=== PATIENT | female | born 1985 | race Caucasian/White ===

== ENCOUNTER 2021-02-05 21:18 | Emergency (ER) | payer OTHER ==
[2021-02-05] MEDS ORDERED: Acetaminophen/HYDROcodone 325-5 MG Tab PO ONE (22:35)
--- NOTE | 2021-02-05 22:44 | EDM.PDOC ---
ED HPI GENERAL MEDICAL PROBLEM - General Chief Complaint: Lower Extremity Injury/Pain Stated Complaint: ANKLE INJURY Time Seen by Provider: 02/05/21 22:30 Source of Information: Reports: Patient, Family (Sister), RN History Limitations: Reports: No Limitations - History of Present Illness INITIAL COMMENTS - FREE TEXT/NARRATIVE: chief complaint: left ankle injury This is a 35 year old female presents to the ER with her Sister, They are on vacation with family, Nay was trying to reach for a toy that was stuck up by the ceiling and fell off the couch. This happened at 3 pm and has not been able to walk on the foot. The ankle is swollen and painful. Tried to walk on foot and almost threw up from the pain. denies any other injury Onset: Today Onset Date: 02/05/21 Onset Time: 15:00 Duration: Hour(s):, Constant Location: Reports: Lower Extremity, Left Quality: Reports: Ache, Burning, Sharp Severity: Moderate Improves with: Reports: Immobilization Worsens with: Reports: Movement Context: Reports: Other (fall in home) Associated Symptoms: Reports: No Other Symptoms Treatments [employer]ENT[employer]ICE ATTENDANT: Reports: Cold Therapy Left Ankle Pain Score (Numeric/FACES): 7 - Related Data Allergies Allergy/AdvReac Type Severity Reaction Status Date / Time No Known Allergies Allergy Verified 02/05/21 22:01 Home Meds: Home Meds NK [No Known Home Meds] 02/05/21 [History] Past Medical History 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: Reports: Musculoskeletal History: Reports: Fracture Neurological History: Reports: Concussion - Infectious Disease History Infectious Disease History: Reports: Chicken Pox Social & Family History - Tobacco Use Tobacco Use Status *Q: Never Tobacco User - Living Situation & Occupation Living situation: Reports: with Family (lives in [place], stay at home Mom.) Review of Systems - Review of Systems Review Of Systems: See Below Constitutional: Reports: No Symptoms Eyes: Reports: No Symptoms Ears: Reports: No Symptoms Nose: Reports: No Symptoms Mouth/Throat: Reports: No Symptoms Respiratory: Reports: No Symptoms Cardiovascular: Reports: No Symptoms Genitourinary: Reports: No Symptoms Musculoskeletal: Reports: Foot Pain (left ankle), Joint Pain (left ankle), Joint Swelling (left ankle), Muscle Pain (left ankle) Skin: Reports: Bruising (left lateral ankle) Neurological: Reports: No Symptoms Psychiatric: Reports: No Symptoms ED EXAM, GENERAL - Physical Exam Exam: See Below Exam Limited By: No Limitations General Appearance: Alert, WD/WN, No Apparent Distress Ears: Normal External Exam, Normal Canal, Hearing Grossly Normal, Normal TMs Nose: Normal Inspection Head: Atraumatic, Normocephalic Neck: Normal Inspection Respiratory/Chest: Lungs Clear, Normal Breath Sounds, No Accessory Muscle Use Cardiovascular: Regular Rate, Rhythm, No Murmur Extremities: Normal Capillary Refill, Joint Swelling (left ankle), Leg Pain (left lower leg/foot), Limited Range of Motion (left ankle) Neurological: Alert, Oriented, CN II-XII Intact, Normal Cognition, Normal Reflexes, No Motor/Sensory Deficits Psychiatric: Normal Affect, Normal Mood Skin Exam: Warm, Dry, Other (left lateral ankle with pain, edema and limited range of motion.) Lymphatic: No Adenopathy ED TRAUMA EXTREMITY PROCEDURES - Splinting Left Lower Extremity Pre-Procedure NV Status: Normal Post-Procedure NV Status: Normal Splint Material: Boot Orthotic Applied & Form Fitted By: Nurse Provider Post-Splint Application NV Check: NV Status Normal, Good Position Complications: No Course - Vital Signs Last Recorded V/S: Last Vital Signs Temp 98.2 F 02/05/21 22:03 Pulse 72 02/05/21 22:03 Resp 16 02/05/21 22:03 BP 122/65 02/05/21 22:03 Pulse Ox 100 02/05/21 22:03 - Orders/Labs/Meds Orders: Active Orders 24 hr Category Date Time Status Ankle Min 3V Lt [CR] Stat Exams 02/05/21 22:35 Taken DME for Discharge [COMM] Urgent Oth 02/05/21 23:29 Ordered Meds: Medications Discontinued Medications Generic Name Dose Route Start Last Admin Trade Name Freq PRN Reason Stop Dose Admin Hydrocodone Bitart/Acetaminophen 1 tab 02/05/21 22:35 02/06/21 00:15 Acetaminophen/Hydrocodone 325-5 Mg Tab PO 02/05/21 22:36 1 tab ONETIME ONE Administration - Radiology Interpretation Free Text/Narrative:: left ankle 3 views -soft tissue edema noted, no acute bony process is seen on wet read, await radiology report -apply walking boot -order crutches -medication ordered for home; Hydrocodone 5-325mg one every 4 to 6 hours as needed for pain #12 -Motrin 600mg one every 6 to 8 hours as needed for pain or fever. -rest, ice, elevate -follow up with Primary Care Provider for recheck in 7 to 10 days if not improved. return to ER sooner if has increased pain, swelling, or any concerns. Ms. Greenberg agrees with plan of care. Departure - Departure Time of Disposition: 23:37 Disposition: Home, Self-Care 01 Condition: Good Clinical Impression: Sprain of ankle, left Qualifiers: Encounter type: initial encounter Involved ligament of ankle: unspecified ligament Qualified Code(s): S93.402A - Sprain of unspecified ligament of left ankle, initial encounter - Discharge Information *PRESCRIPTION DRUG MONITORING PROGRAM REVIEWED*: Not Applicable *COPY OF PRESCRIPTION DRUG MONITORING REPORT IN PATIENT [id number]: Not Applicable Instructions: Crutch Use, Adult, [id number], Ankle Sprain, [id number], Cast or Splint Care, Adult, [id number] Referrals: PCP,None [Primary Care Provider] - Forms: ED Department Discharge Care Plan Goals: Left ankle sprain -x-ray left ankle 3 views--soft tissue edema/swelling noted, no acute bony process is seen on wet read, await radiology report -apply walking boot -order crutches -medication ordered for home; Hydrocodone 5-325mg one every 4 to 6 hours as needed for pain #12 -Motrin 600mg one every 6 to 8 hours as needed for pain or fever. -rest, ice, elevate -follow up with Primary Care Provider for recheck in 7 to 10 days if not improved. return to ER sooner if has increased pain, swelling, or any concerns. Ms. Greenberg agrees with plan of care. Sepsis Event Note (ED) - Evaluation Sepsis Screening Result: No Definite Risk - Focused Exam Vital Signs: Vital Signs Temp Pulse Resp BP Pulse Ox 02/05/21 22:03 98.2 F 72 16 122/65 100 02/05/21 21:46 98.2 F 72 16 122/65 100 - Problem List & Annotations (1) Sprain of ankle, left SNOMED Code(s): 83053809, [id number] Code(s): S93.402A - SPRAIN OF UNSPECIFIED LIGAMENT OF LEFT ANKLE, INIT ENCNTR Status: Acute Priority: High Current Visit: Yes Qualifiers: Encounter type: initial encounter Involved ligament of ankle: unspecified ligament Qualified Code(s): S93.402A - Sprain of unspecified ligament of left ankle, initial encounter - Problem List Review Problem List Initiated/Reviewed/Updated: Yes - My Orders Last 24 Hours: My Active Orders 02/05/21 22:35 Ankle Min 3V Lt [CR] Stat 02/05/21 23:29 DME for Discharge [COMM] Urgent - Assessment/Plan Last 24 Hours: My Active Orders 02/05/21 22:35 Ankle Min 3V Lt [CR] Stat 02/05/21 23:29 DME for Discharge [COMM] Urgent Plan: Left ankle sprain -x-ray eft ankle 3 views--soft tissue edema noted, no acute bony process is seen on wet read, await radiology report -apply walking boot -order crutches -medication ordered for home; Hydrocodone 5-325mg one every 4 to 6 hours as needed for pain #12 -Motrin 600mg one every 6 to 8 hours as needed for pain or fever. -rest, ice, elevate -follow up with Primary Care Provider for recheck in 7 to 10 days if not improved. return to ER sooner if has increased pain, swelling, or any concerns. Ms. Greenberg agrees with plan of care.
--- NOTE | 2021-02-06 09:06 | CR ---
Ankle Min 3V Lt CLINICAL HISTORY: Fall FINDINGS: The soft tissues are swollen over the lateral malleolus. There is mild widening of the lateral aspect of the ankle mortise. Some of this is positional. No acute fracture or dislocation is noted. IMPRESSION: Minimal asymmetry in the ankle mortise with lateral widening. This could represent ligamentous injury and/or laxity. Moderate lateral soft tissue swelling No fracture seen
== END 2021-02-06 00:49 | disposition home or self-care (01) ==
LOC: JP.ED 21:18
DX: S93.402A Sprain of unspecified ligament of left ankle, initial encounter (principal); W18.09XA Striking against other object with subsequent fall, initial encounter; Y92.009 Unspecified place in unspecified non-institutional (private) residence as the place of occurrence of the external cause
CPT/HCPCS: 73610; 99283; A9270